=== PATIENT | female | born 1970 | race Hispanic/Latino ===

== ENCOUNTER 2017-01-05 10:51 | Day surgery (SDC) | payer OTHER ==
--- NOTE | 2017-01-04 18:25 | Short Stay Summary ---
Short Stay Documentation Date of service: 01/04/17 Narrative H&P: 46 YR OLD FEMALE Diamond Martinez MD / RECURRENT UTI KID / CHILDHOOD SURGERY WITH DR. 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 MILLER NOTE) APPY / CYSTO A KID (11 YRS OLD) pt has Kleinfelter's disease NEEDS CYSTO, RPG, HYDRDISTENTION - History Past Medical History: other (UTI) Past Surgical History: appendectomy Social history: no significant social history - Allergies and Medications Current Medications: Allergies latex Allergy (Verified 01/04/17 13:43) Unknown Latex, Natural Rubber Allergy (Verified 01/04/17 13:43) Unknown Home Medications Medication Instructions Recorded Confirmed Last Taken Type Citalopram Hydrobromide [celeXA] 40 mg PO DAILY 01/04/17 01/04/17 Unknown History Naproxen Sodium [All Day Pain 220 mg PO BID PRN 01/04/17 01/04/17 Unknown History Relief] Phenazopyridine [Pyridium] 100 mg PO TID 01/04/17 01/04/17 Unknown History risperiDONE [Risperdal] 1 tab PO BID 01/04/17 01/04/17 Unknown History Active Medications Cefazolin Sodium (Ancef/Sterile Water 2 Gm/20 Ml) 2 gm in 20 mls @ 80 mls/hr IV PREOP NR PRN Reason: Protocol Stop: 01/05/17 23:01 - Physical exam General appearance: no acute distress, well-nourished Integumentary: no rash, no growths HEENT: Atraumatic, PERRLA, EOMI Lungs: Clear to auscultation Breasts: deferred Heart: Regular rate, No murmurs Gastrointestinal: normal Female Genitourinary: deferred Rectal Exam: deferred Extremities: no ischemia Neurological: Normal gait - Brief post op/procedure progress note Date of procedure: 01/05/17 Pre-op diagnosis: UTI Post-op diagnosis: other (urethral stricture) Procedure: cysto, urethral dilation, rpg, hydrodistention Anesthesia: GETA Surgeon: EMELIA FELDER Estimated blood loss: none Pathology: none Condition: stable (600cc bladder capacity) - Hospital course Hospital course: leonor on chart - Disposition Condition at discharge: Stable Disposition: DISCHARGED TO HOME OR SELFCARE
[~2017-01-05 10:51] MED LIST: ANCEF/STERILE WATER 2 GM/20 ML 2 GM/20 ML SYRINGE IV NR; DILAUDID IV PRN; PERCOCET 5/325 PO PRN; ZOFRAN IV PRN
[2017-01-05] MEDS ORDERED: PEPCID PO NR (11:00)
[2017-01-05] MEDS ORDERED: NACL 0.9% 1000 ML 1,000 ML IV SCH (11:00)
[2017-01-05] MEDS ORDERED: VERSED IV NR (11:00)
--- NOTE | 2017-01-05 12:28 | Anesthesia Consultation ---
Anesthesia Consult and Med Hx Date of service: 01/05/17 - Airway Anesthetic Teeth Evaluation: Good ROM Head & Neck: Adequate Mental/Hyoid Distance: Adequate Mallampati Class: Class II Intubation Access Assessment: Probably Good - Pulmonary Exam CTA: Yes - Cardiac Exam Cardiac Exam: RRR - Pre-Operative Health Status ASA Pre-Surgery Classification: ASA2 Proposed Anesthetic Plan: General - Pulmonary Hx Smoking: No Hx Asthma: No Hx Sleep Apnea: No - Cardiovascular System Hx Hypertension: No Hx Heart Attack/AMI: No - Central Nervous System Hx Seizures: Yes (took medication this AM) CVA: No - Gastrointestinal Hx Gastroesophageal Reflux Disease: No - Endocrine Hx Liver Disease: No Hx Non-Insulin Dependent Diabetes: No - Hematic Hx Anemia: No - Other Systems Hx Cancer: Yes (Breast CA, stopped treatment 6 years ago) - Additional Comments Anesthesia Medical History Comments: NAC
[2017-01-05] MEDS ORDERED: ZOFRAN ONE ×2 (12:52→13:37)
[2017-01-05] MEDS ORDERED: XYLOCAINE MPF 2% ONE (12:52)
[2017-01-05] MEDS ORDERED: DILAUDID ONE (12:52)
[2017-01-05] MEDS ORDERED: DIPRIVAN 10 MG/ML IV ONE (12:53)
--- NOTE | 2017-01-05 13:17 | Anesthesia Day of Surgery ---
Anesthesia Day of Surgery - Day of Surgery Patient Examined: Yes Patient H&P Reviewed: Yes Patient is NPO: Yes
[2017-01-05] MEDS ORDERED: NEO SYNEPHRINE ONE (13:37)
[2017-01-05] MEDS ORDERED: NACL 0.9% 100 ML ONE (13:37)
[2017-01-05] MEDS ORDERED: DECADRON ONE (13:37)
[2017-01-05] MEDS ORDERED: ROBINUL ONE (13:42)
[2017-01-05] MEDS ORDERED: NACL 0.9% IR ONE (13:42)
--- NOTE | 2017-01-05 14:08 | Post Anesthesia Evaluation ---
- Post Anesthesia Evaluation Patient Participated: Yes Airway Patent: Yes Stable Respiratory Function: Yes Nausea/Vomiting: No Temp > 96.8F: Yes Pain Manageable: Yes Adequeate Hydration: Yes Anesthesia Complications: No Block Receding Appropriately: Not Applicable Patient on Ventilator: No
--- NOTE | 2017-01-05 14:45 | Operative Report ---
PREOPERATIVE DIAGNOSES: Recurrent urinary tract infection, right flank pain. POSTOPERATIVE DIAGNOSES: Recurrent urinary tract infection, right flank pain, urethral stricture, Klinefelter's disease. PROCEDURE: Cystoscopy, urethral dilatation to 26 Ug[place]an, bilateral retrograde pyelograms, hydrodistention. SURGEON: Johnny Hirsch MD ANESTHESIA: General. ANESTHESIOLOGIST: Capri Thornton MD ESTIMATED BLOOD LOSS: Minimal. FLUIDS: Crystalloid. COMPLICATIONS: No complications. INDICATIONS: This patient is a 46-year-old female who is in the state custody at this time presents for recurrent urinary tract infections. The patient has a history of Klinefelter's disease and has undergone reconstruction. She has had cystoscopies as a kid, presents now with UTI and presents for evaluation. Risks, benefits, and complications were explained. The patient agreed to proceed with surgical intervention. DESCRIPTION OF PROCEDURE: The patient was taken to the operative suite, placed in a supine position. After adequate general anesthesia, placed in a dorsal lithotomy position, prepped and draped in a sterile fashion. Attempts at cystoscopy with a 22-Ugandan scope were unsuccessful, urethral dilation starting with an 18-Ugandan going up to 26, obvious stricture could be appreciated. Cystoscopy using the 22-Ugandan scope was then performed. Bladder, no tumors or stones were noted. Both ureteral orifices in normal position. Bilateral retrograde pyelograms were obtained with an 8 [place] catheter and 8 mL of contrast. No filling defects or obstruction on the right. Right side mild delay, but it does drain. Hydrodistention, bladder capacity of 600 mL. No petechiae hemorrhage. On pelvic exam, the patient was found to have a short vaginal vault. The patient tolerated the procedure well, was extubated and taken to recovery room, will go home on [facility] and [place] and follow up in the office. JOB# [id number] [facility]
[2017-01-05 17:18] VITALS: BP 117/73
--- NOTE | 2017-01-06 08:52 | Fluoroscopy Report ---
RETROGRADE PYELOGRAM: There is adequate filling of the ureters and intrarenal collecting systems with no filling defects or anatomic abnormalities identified.
== END 2017-01-05 17:00 | disposition home or self-care (01) ==
LOC: OR 10:51 → EDBD 10:51 → EEVIPCON 13:00 → OR 17:00
PROVIDERS: ATTEND Urology
DX: N35.9 Urethral stricture, unspecified (principal); N39.0 Urinary tract infection, site not specified; F32.9 Major depressive disorder, single episode, unspecified; Z98.890 Other specified postprocedural states; Z85.3 Personal history of malignant neoplasm of breast
CPT/HCPCS: 52281; 74420; A4217; C1758; J0690; J1100; J1170; J2250; J2370; J2405; J2704; J7030; Q9967